=== PATIENT | female | born 1965 | race Caucasian/White ===

== ENCOUNTER 2019-08-17 15:02 | Emergency (ER) | payer OTHER ==
[2019-08-17] MEDS ORDERED: TETANUS & DIPHTHERIA TOX,ADULT 0.5 ML VIAL ONE (15:16)
[2019-08-17] MEDS ORDERED: LIDOCAINE 1% MPF 5 ML VIAL ONE (15:16)
--- NOTE | 2019-08-17 16:05 | RAD REPORT ---
EXAM DESCRIPTION: RAD - Hand Right 3 View - 08/17/2019 3:49 pm CLINICAL HISTORY: Right hand pain, laceration not further localized COMPARISON: None. FINDINGS: No fracture is identified. There is no dislocation or periosteal reaction noted. No forei gn body or other soft tissue abnormality. IMPRESSION: Negative right hand examination for acute or significant bone, joint or soft tissue find ing.
--- NOTE | 2019-08-17 16:13 | ER ---
Nurse's Notes [facility] Name: Nathalie Jordan Age: 53 yrs Sex: Female : 1965 Arrival Date: 08/17/2019 Time: 15:03 Bed 27 Private MD: Amadou Benton B Diagnosis: Laceration without foreign body of right ring finger without damage to nail Presentation: 08/17 15:09 Presenting complaint: Patient states: right 4th digit laceration with a potato slicer sv today. Transition of care: patient was not received from another setting of care. Complicating Factors: There are no complicating factors for this patient. Onset of symptoms was August 17, 2019. Risk Assessment: Do you want to hurt yourself or someone else? Patient reports no desire to harm self or others. Initial Sepsis Screen: Does the patient meet any 2 criteria? No. Patient's initial sepsis screen is negative. Does the patient have a suspected source of infection? No. Patient's initial sepsis screen is negative. Care prior to arrival: None. 15:09 Method Of Arrival: Ambulatory sv 15:09 Acuity: ALISON 3 sv Historical: - Allergies: 15:10 No Known Allergies; sv - PMHx: 15:10 None; sv - PSHx: 15:10 Hysterectomy; Carotid surgery; R ankle; Gastric Bypass; sv - Immunization history:: Flu vaccine is not up to date. - Social history:: Smoking status: Patient/guardian denies using tobacco. - Ebola Screening: : No symptoms or risks identified at this time. Screenin:27 Abuse screen: Denies threats or abuse. Denies injuries from another. Nutritional rv screening: No deficits noted. Tuberculosis screening: No symptoms or risk factors identified. Fall Risk None identified. Assessment: 15:00 General: Appears in no apparent distress. comfortable, Behavior is calm, cooperative. rv 15:00 Pain: Complains of pain in right hand. Neuro: Level of Consciousness is awake, alert, rv obeys commands, Oriented to person, place, time, situation. Cardiovascular: Patient's skin is warm and dry. Respiratory: Airway is patent. Derm: Skin is intact. Musculoskeletal: Injury Description: Laceration sustained to palmar aspect of distal phalanx of right ring finger is clean. Vital Signs: 15:10 BP 157 / 96; Pulse 76; Resp 20; Temp 97.3; Pulse Ox 99% ; Weight 108.86 kg; Height 5 sv ft. 7 in. (170.18 cm); 16:28 BP 138 / 88; Pulse 71; Resp 17; Pulse Ox 99% on R/A; rv 15:10 Body Mass Index 37.59 (108.86 kg, 170.18 cm) sv ED Course: 15:00 Patient has correct armband on for positive identification. Pulse ox on. NIBP on. rv 15:03 Patient arrived in ED. as 15:04 Amadou Benton MD is Private Physician. as 15:06 Antwan Morfin NP is PHCP. pm1 15:06 Ashu Carr MD is Attending Physician. pm1 15:10 Triage completed. sv 15:11 Arm band placed on. sv 15:24 Ghassan Licona RN is Primary Nurse. rv 15:45 Wound care: to laceration located on palmar aspect of distal phalanx of right ring rv finger Patient tolerated. 15:50 Hand Right 3 View XRAY In Process Unspecified. EDMS 16:27 No provider procedures requiring assistance completed. Patient did not have IV access rv during this emergency room visit. 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 Exp: rv 01/29/2021. Lot #: [id number]. } Route: IM; Site: right deltoid; 16:25 Follow up: Response: No adverse reaction rv 16:24 Drug: Lidocaine (1 %) 5 ml Volume: 5 ml; Route: Infiltration; rv 16:25 Follow up: Response: No adverse reaction rv Outcome: 16:11 Discharge ordered by MD. pm1 16:27 Discharged to home ambulatory, with family. rv 16:27 Condition: good 16:27 Discharge instructions given to patient, Instructed on discharge instructions, follow up and referral plans. medication usage, wound care, Demonstrated understanding of instructions, follow-up care, medications, Prescriptions given X 1. 16:29 Patient left the ED. rv Signatures: Dispatcher [employer] EDMS Alayna Oro RN RN sv Martinez, Amelia as Antwan Morfin NP CLIENT CONSULTANT pm1 Ghassan Licona RN RN rv
--- NOTE | 2019-08-17 16:14 | EDPHYS ---
Physician Documentation [facility] Name: Nathalie Jordan Age: 53 yrs Sex: Female : 1965 Arrival Date: 08/17/2019 Time: 15:03 Bed 27 Private MD: Amadou Benton B ED Physician Ashu Carr HPI: 08/17 15:23 This 53 yrs old Female presents to ER via Ambulatory with complaints of pm1 Laceration - Finger. 15:23 The patient or guardian reports a laceration. The complaints affect the palmar aspect pm1 of distal phalanx of right ring finger. Context: The problem was sustained at home, resulted from cutting potatoes. Onset: The symptoms/episode began/occurred just prior to arrival. Modifying factors: The symptoms are alleviated by pressure to area. Associated signs and symptoms: Pertinent negatives: cyanosis distally, decreased sensation distally, numbness distally, tingling distally. The patient has not recently seen a physician, the patient's primary care provider is Dr. Benton. Historical: - Allergies: 15:10 No Known Allergies; sv - PMHx: 15:10 None; sv - PSHx: 15:10 Hysterectomy; Carotid surgery; R ankle; Gastric Bypass; sv - Immunization history:: Flu vaccine is not up to date. - Social history:: Smoking status: Patient/guardian denies using tobacco. - Ebola Screening: : No symptoms or risks identified at this time. ROS: 15:23 Constitutional: Negative for fever, chills, and weight loss, Cardiovascular: Negative pm1 for chest pain, palpitations, and edema, Respiratory: Negative for shortness of breath, cough, wheezing, and pleuritic chest pain, Back: Negative for injury and pain. 15:23 Neuro: Negative for headache, weakness, numbness, tingling, and seizure. 15:23 MS/extremity: Positive for laceration, of the palmar aspect of distal phalanx of right ring finger, Negative for decreased range of motion, deformity. 15:23 Skin: Positive for laceration(s), of the palmar aspect of distal phalanx of right ring finger. Exam: 15:23 Constitutional: This is a well developed, well nourished patient who is awake, alert, pm1 and in no acute distress. Head/Face: Normocephalic, atraumatic. Neck: Trachea midline, no thyromegaly or masses palpated, and no cervical lymphadenopathy. Supple, full range of motion without nuchal rigidity, or vertebral point tenderness. No Meningismus. Chest/axilla: Normal chest wall appearance and motion. Nontender with no deformity. No lesions are appreciated. Cardiovascular: Regular rate and rhythm with a normal S1 and S2. No gallops, murmurs, or rubs. No pulse deficits. Respiratory: Lungs have equal breath sounds bilaterally, clear to auscultation and percussion. No rales, rhonchi or wheezes noted. No increased work of breathing, no retractions or nasal flaring. Back: No spinal tenderness. No costovertebral tenderness. Full range of motion. 15:23 Skin: Appearance: normal except for affected area, injury, laceration(s), the wound is approximately 1.5 cm(s), of the palmar aspect of distal phalanx of right ring finger. 15:23 Neuro: Orientation: is normal, Motor: is normal, moves all fours, Sensation: is normal, no obvious gross deficits, Gait: is steady, at a normal pace, without difficulty. Vital Signs: 15:10 BP 157 / 96; Pulse 76; Resp 20; Temp 97.3; Pulse Ox 99% ; Weight 108.86 kg; Height 5 sv ft. 7 in. (170.18 cm); 16:28 BP 138 / 88; Pulse 71; Resp 17; Pulse Ox 99% on R/A; rv 15:10 Body Mass Index 37.59 (108.86 kg, 170.18 cm) sv Laceration: 16:12 Wound Repair of 1.5cm ( 0.6in ) subcutaneous laceration to palmar aspect of distal pm1 phalanx of right ring finger. Linear shaped.. Distal neuro/vascular/tendon intact. Anesthesia: Digital block administered with 2 mls of 1% lidocaine. Wound prep: Extensive cleansing with hibiclenz by nurse, Wound irrigation with saline by nurse, Wound explored extensively, Copious irrigation. Skin closed with 5 5-0 Prolene using simple sutures and sterile technique. Dressed with 4x4's. Patient tolerated well. MDM: 15:19 Patient medically screened. pm1 16:09 Data reviewed: vital signs. Data interpreted: Pulse oximetry: on room air is 99 %. pm1 Interpretation: normal. Counseling: I had a detailed discussion with the patient and/or guardian regarding: the historical points, exam findings, and any diagnostic results supporting the discharge/admit diagnosis, radiology results, the need for outpatient follow up, PCP/ER/Clinic for suture removal in 10-14 days, to return to the emergency department if symptoms worsen or persist or if there are any questions or concerns that arise at home. 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 Exp: rv 01/29/2021. Lot #: [id number]. } Route: IM; Site: right deltoid; 16:25 Follow up: Response: No adverse reaction rv 16:24 Drug: Lidocaine (1 %) 5 ml Volume: 5 ml; Route: Infiltration; rv 16:25 Follow up: Response: No adverse reaction rv Disposition: 16:43 Co-signature as Attending Physician, Ashu Carr MD I agree with the assessment and kdr plan of care. Disposition: 08/17/19 16:11 Discharged to Home. Impression: Laceration without foreign body of right ring finger without damage to nail. - Condition is Stable. - Discharge Instructions: Laceration Care, Adult. - Prescriptions for Keflex 500 mg Oral Capsule - take 1 capsule by ORAL route every 12 hours for 10 days; 20 capsule. - Medication Reconciliation Form, Thank You Letter, Antibiotic Education, Prescription Opioid Use form. - Follow up: Emergency Department; When: As needed; Reason: Worsening of condition. Follow up: Private Physician; When: 10 - 14 days; Reason: Recheck today's complaints, Continuance of care, Re-evaluation by your physician. - Problem is new. - Symptoms have improved. Signatures: Dispatcher [employer] Alayna Padilla RN RN sv Ashu Carr MD MD kdr Antwan Morfin, CASTINGS TRIMMER CASTINGS TRIMMER pm1 Ghassan Licona, RN RN rv Corrections: (The following items were deleted from the chart) 16:29 16:11 08/17/2019 16:11 Discharged to Home. Impression: Laceration without foreign body rv of right ring finger without damage to nail. Condition is Stable. Forms are Medication Reconciliation Form, Thank You Letter, Antibiotic Education, Prescription Opioid Use. Follow up: Emergency Department; When: As needed; Reason: Worsening of condition. Follow up: Private Physician; When: 10 - 14 days; Reason: Recheck today's complaints, Continuance of care, Re-evaluation by your physician. Problem is new. Symptoms have improved. pm1
[2019-08-17 16:36] VITALS: TEMP 97.3; O2SAT 99
[2019-08-17 16:38] VITALS: BP 138/88
== END 2019-08-17 16:29 | disposition home or self-care (01) ==
LOC: ER 15:02
PROC: 0JQJ0ZZ Repair Right Hand Subcutaneous Tissue and Fascia, Open Approach (ICD-10-PCS; principal; 2019-08-17)
DX: S61.214A Laceration without foreign body of right ring finger without damage to nail, initial encounter (principal); W45.8XXA Other foreign body or object entering through skin, initial encounter; Y93.G3 Activity, cooking and baking; Y92.009 Unspecified place in unspecified non-institutional (private) residence as the place of occurrence of the external cause; Z23 Encounter for immunization
CPT/HCPCS: 90471; 90714; 99284

== ENCOUNTER 2024-05-08 19:21 | Emergency (ER) | payer OTHER ==
--- OUTSIDE RECORDS SUMMARY | 2024-05-08 19:24 | XMS REPORT | Clinical Summary ---
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 0 12/06/2017 Active traZODone (DESYREL) 50 mg tablet Take 1 tablet by mouth as needed. 0 12/06/2017 Active QUEtiapine (SEROquel) 300 mg tablet Take 300 mg by mouth at bedtime. 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 Fracture of bone 20+ years ankle-Right Depressive disorder 2+ years Bipolar Anxiety 15+ years [place] Suicide attempt 2+ years Social History Tobacco Use Types Packs/Day Years Used Date Smoking Tobacco: Former Cigarettes Q uit: 08/26/1986 Smokeless Tobacco: Never Alcohol Use Standard Drinks/Week Comments No 0 (1 standard drink = 0.6 oz pur e alcohol) Sex and Gender Information Value Date Recorded Sex Assigned at Not on file Gender Identity Not on file Sexual Orientation Not on file Obstetrics History Para Term AB IAB SAB Ectopic Multiple Livin g Live Births 3 2 1 2 Date Outcome GA Total Labor Labor/2nd/3rd Weight Sex Type Anes PTL Fannie A1 A5 Name Clin Para Para AB Plan of Treatment Health Maintenance Due Date Last Done Comments COVID-19 Vaccine (2022-2 4 season) 2024 Influenza Vaccine (#1) 2024 Pneumococcal Vaccine: Pediat rics (0 to 5 Years) and At-Risk Patients (6 to 64 Years) Aged Out No longer eligi ble based on patient's age to complete this topic Care Teams Auto Body 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 PCP - General Gynecologic Medical Oncology 12/30/17 Leon Arshad MD [address] [place], [place] [id number] [email or web address] PCP - External Referring 12/30/17 Amadou Benton [address] [place], [place] [id number] PCP - External Primary Care Provider 01/01/18
[2024-05-08] MEDS ORDERED: CIPROFLOXACIN HCL 500 MG TAB ONE (20:26)
[2024-05-08] MEDS ORDERED: PHENAZOPYRIDINE 100MG TAB PO ONE (20:26)
--- NOTE | 2024-05-08 20:26 | EDPHYS ---
Physician Documentation [facility] Name: Nathalie Jordan Age: 58 yrs Sex: Female : 1965 Arrival Date: 05/08/2024 Time: 19:21 Bed 16 Private MD: ED Physician Vinay Bledsoe HPI: 05/08 20:22 This 58 yrs old Female presents to ER via Ambulatory with complaints of Low wayne Back Pain. Historical: - Allergies: 19:48 No Known Allergies; dd2 - PMHx: 19:48 None; dd2 - PSHx: 19:48 hysterectomy; gastric sleeve; dd2 - Immunization history:: Adult Immunizations unknown. - Infectious Disease History:: Denies. - Social history:: Smoking status: Patient denies any tobacco usage or history of. ROS: 20:22 Constitutional: Negative for fever, chills, and weight loss, Eyes: Negative for injury, wayne pain, redness, and discharge, ENT: Negative for injury, pain, and discharge, Neck: Negative for injury, pain, and swelling, Cardiovascular: Negative for chest pain, palpitations, and edema, Respiratory: Negative for shortness of breath, cough, wheezing, and pleuritic chest pain, Abdomen/GI: Negative for abdominal pain, nausea, vomiting, diarrhea, and constipation, Back: Negative for injury and pain, MS/Extremity: Negative for injury and deformity, Skin: Negative for injury, rash, and discoloration, Neuro: Negative for headache, weakness, numbness, tingling, and seizure, Psych: Negative for depression, anxiety, suicide ideation, homicidal ideation, and hallucinations, Allergy/Immunology: Negative for hives, rash, and allergies, Endocrine: Negative for neck swelling, polydipsia, polyuria, polyphagia, and marked weight changes, Hematologic/Lymphatic: Negative for swollen nodes, abnormal bleeding, and unusual bruising, 20:22 : Positive for urinary symptoms, urinary frequency, small amounts, burning with urination, difficulty urinating, Exam: 20:22 Constitutional: This is a well developed, well nourished patient who is awake, alert, wayne and in no acute distress. Head/Face: Normocephalic, atraumatic. Eyes: Pupils equal round and reactive to light, extra-ocular motions intact. Lids and lashes normal. Conjunctiva and sclera are non-icteric and not injected. Cornea within normal limits. Periorbital areas with no swelling, redness, or edema. ENT: Nares patent. No nasal discharge, no septal abnormalities noted. Tympanic membranes are normal and external auditory canals are clear. Oropharynx with no redness, swelling, or masses, exudates, or evidence of obstruction, uvula midline. Mucous membranes moist. Neck: Trachea midline, no thyromegaly or masses palpated, and no cervical lymphadenopathy. Supple, full range of motion without nuchal rigidity, or vertebral point tenderness. No Meningismus. Chest/axilla: Normal chest wall appearance and motion. Nontender with no deformity. No lesions are appreciated. Cardiovascular: Regular rate and rhythm with a normal S1 and S2. No gallops, murmurs, or rubs. Normal PMI, no JVD. No pulse deficits. Respiratory: Lungs have equal breath sounds bilaterally, clear to auscultation and percussion. No rales, rhonchi or wheezes noted. No increased work of breathing, no retractions or nasal flaring. Abdomen/GI: Soft, non-tender, with normal bowel sounds. No distension or tympany. No guarding or rebound. No evidence of tenderness throughout. Back: No spinal tenderness. No costovertebral tenderness. Full range of motion. Female : Normal external genitalia. Skin: Warm, dry with normal turgor. Normal color with no rashes, no lesions, and no evidence of cellulitis. MS/ Extremity: Pulses equal, no cyanosis. Neurovascular intact. Full, normal range of motion. Neuro: Awake and alert, GCS 15, oriented to person, place, time, and situation. Cranial nerves II-XII grossly intact. Motor strength 5/5 in all extremities. Sensory grossly intact. Cerebellar exam normal. Normal gait. Psych: Awake, alert, with orientation to person, place and time. Behavior, mood, and affect are within normal limits. Vital Signs: 19:43 BP 124 / 92; Pulse 77; Resp 16; Temp 98.3(O); Pulse Ox 100% ; Weight 84.82 kg; dd2 20:00 BP 156 / 99; Pulse 99; Resp 18; Temp 98.2; Pulse Ox 100% ; Pain 5/10; rg5 21:01 BP 150 / 87; Pulse 65; Resp 17; Pulse Ox 99% on R/A; rg5 20:00 Pain Scale: Adult rg5 MDM: 19:29 Patient medically screened. [facility] 20:25 Differential diagnosis: nonspecific abdominal pain, urinary tract infection. Data [facility] reviewed: vital signs, nurses notes, lab test result(s), urinalysis. Consideration of Admission/Observation Escalation of care including admission/observation considered. I considered the following discharge prescriptions or medication management in the emergency department Medications were administered in the Emergency Department. See MAR. Test considered but Not performed: Labs: no cbc, no comp met. Historians other than the Patient: Spouse/Significant Other: spouse well informed. Care significantly affected by the following chronic conditions: none. Counseling: I had a detailed discussion with the patient and/or guardian regarding the historical points, exam findings, and any diagnostic results supporting the discharge/admit diagnosis, lab results. 05/08 20:05 Order name: Urinalysis w/ reflexes [facility] 05/08 20:05 Order name: PREGU [facility] 05/08 20:21 Order name: Urine Culture [facility] Administered Medications: 20:34 Drug: Ciprofloxacin PO 500 mg PO once Route: PO; rg5 20:43 Follow up: Response: No adverse reaction rg5 20:34 Drug: Phenazopyridine PO 200 mg PO once Route: PO; rg5 20:43 Follow up: Response: No adverse reaction rg5 20:45 Drug: Trimethoprim-Sulfamethoxazole PO (160 mg-800 mg (DS) 1 tablet PO once Route: PO; rg5 21:00 Follow up: Response: No adverse reaction rg5 Disposition Summary: 05/08/24 20:26 Discharge Ordered Notes: Location: Home [facility] Problem: new [facility] Symptoms: have improved wayne Condition: Stable wayne Diagnosis - Dysuria wayne - UTI/ Urinary tract infection, site not specified wayne Followup: wayne - With: Private Physician - When: 2 - 3 days - Reason: Recheck today's complaints, Continuance of care, Re-evaluation by your physician Discharge Instructions: - Discharge Summary Sheet wayne - Dysuria wayne - Urinary Tract Infection, Adult wayne - Urinary Tract Infection, Adult, [id number] [facility] Forms: - Medication Reconciliation Form wayne - Antibiotic Education wayne - Prescription Opioid Use wayne - Patient Portal Instructions [facility] - Leadership Thank You Letter [facility] Prescriptions: - Cipro 250 mg Oral tablet - take 1 tablet ORAL route every 12 hours; 14 tablet; Refills: 0, Product [facility] Selection Permitted - Pyridium 200 mg Oral Tablet - take 1 tablet ORAL route every 8 hours for 3 days; 9 tablet; Refills: 0, [facility] Product Selection Permitted - Bactrim DS 800-160 mg Oral Tablet - take 1 tablet ORAL route every 12 hours for 3 days; 6 tablet; Refills: 0, [facility] Product Selection Permitted Signatures: Dispatcher [employer] Vinay Zabala MD MD cha Gallardo, Rommel RN RN rg5 JOSE MARTIN LI RN RN dd2
--- NOTE | 2024-05-08 20:26 | ER ---
Nurse's Notes [facility] Name: Nathalie Jordan Age: 58 yrs Sex: Female : 1965 Arrival Date: 05/08/2024 Time: 19:21 Bed 16 Private MD: Diagnosis: Dysuria;UTI/ Urinary tract infection, site not specified Presentation: 05/08 19:43 Chief complaint: Patient states: Pt c/o laow back pain and difficulty urinating, dd2 urgency and burning. Pt states 2 weeks ago in [place] dx with UTI and given antibx. Has worsened. Coronavirus screen: At this time, the client does not indicate any symptoms associated with coronavirus-19. Ebola Screen: No symptoms or risks identified at this time. Initial Sepsis Screen: Does the patient meet any 2 criteria? No. Patient's initial sepsis screen is negative. Does the patient have a suspected source of infection? No. Patient's initial sepsis screen is negative. Risk Assessment: Do you want to hurt yourself or someone else? Patient reports no desire to harm self or others. Onset of symptoms is unknown. 19:43 Method Of Arrival: Ambulatory dd2 19:43 Acuity: ALISON 3 dd2 Triage Assessment: 19:48 General: Appears uncomfortable, Behavior is calm, cooperative, appropriate for age. dd2 Pain: Complains of pain in left low back and right low back Pain currently is 7 out of 10 on a pain scale. : Reports burning with urination, urgency, urinary frequency. Historical: - Allergies: 19:48 No Known Allergies; dd2 - PMHx: 19:48 None; dd2 - PSHx: 19:48 hysterectomy; gastric sleeve; dd2 - Immunization history:: Adult Immunizations unknown. - Infectious Disease History:: Denies. - Social history:: Smoking status: Patient denies any tobacco usage or history of. Screenin:00 [facility] ED Fall Risk Assessment (Adult) History of falling in the last 3 months, rg5 including since admission Confusion or Disorientation No (0 pts) Intoxicated or Sedated No (0 pts) Impaired Gait No (0 pts) Mobility Assist Device Used No (0 pt) Altered Elimination No (0 pt) Score/Fall Risk Level 0 - 2 = Low Risk Oriented to surroundings, Maintained a safe environment, Hourly rounding (assess needs \T\ fall precautionary measures) done. 20:00 Abuse screen: Denies threats or abuse. Nutritional screening: No deficits noted. rg5 Tuberculosis screening: No symptoms or risk factors identified. Assessment: 20:00 General: Appears in no apparent distress. Behavior is calm. rg5 20:00 Pain: Complains of pain in abdomen Pain currently is 5 out of 10 on a pain scale. rg5 Quality of pain is described as crampy. Neuro: Level of Consciousness is awake, alert, obeys commands. Cardiovascular: Denies chest pain, shortness of breath, Capillary refill < 3 seconds Patient's skin is warm and dry. Respiratory: Airway is patent Trachea midline Respiratory effort is even, unlabored. GI: Abdomen is round non-distended. : Reports burning with urination, pain since yesterday. EENT: No deficits noted. Derm: Skin is intact, Skin is dry, Skin is pink, warm \T\ dry. Skin temperature is warm. Musculoskeletal: Range of motion: intact in all extremities. Vital Signs: 19:43 BP 124 / 92; Pulse 77; Resp 16; Temp 98.3(O); Pulse Ox 100% ; Weight 84.82 kg; dd2 20:00 BP 156 / 99; Pulse 99; Resp 18; Temp 98.2; Pulse Ox 100% ; Pain 5/10; rg5 21:01 BP 150 / 87; Pulse 65; Resp 17; Pulse Ox 99% on R/A; rg5 20:00 Pain Scale: Adult rg5 ED Course: 19:24 Patient arrived in ED. ra3 19:29 Vinay Bledsoe MD is Attending Physician. wayne 19:48 Triage completed. dd2 19:48 Arm band placed on left wrist. Patient placed in an exam room, on a stretcher, on pulse dd2 oximetry, Patient notified of wait time. 19:57 Edgar Mckinney, SABIHA is Primary Nurse. rg5 20:00 Patient has correct armband on for positive identification. Call light in reach. Side rg5 rails up X 1. Adult w/ patient. Provided Education on:. 20:00 No provider procedures requiring assistance completed. Patient did not have IV access rg5 during this emergency room visit. 20:42 Awaiting lab results. rg5 21:01 Resting quietly. rg5 21:01 Door closed. Noise minimized. Warm blanket given. rg5 Administered Medications: 20:34 Drug: Ciprofloxacin PO 500 mg PO once Route: PO; rg5 20:43 Follow up: Response: No adverse reaction rg5 20:34 Drug: Phenazopyridine PO 200 mg PO once Route: PO; rg5 20:43 Follow up: Response: No adverse reaction rg5 20:45 Drug: Trimethoprim-Sulfamethoxazole PO (160 mg-800 mg (DS) 1 tablet PO once Route: PO; rg5 21:00 Follow up: Response: No adverse reaction rg5 Medication: 20:40 VIS not applicable for this client. rg5 Outcome: 20:26 Discharge ordered by . wayne 21:10 Patient left the ED. rg5 Signatures: Vinay Bledsoe MD MD cha Alva, Ruby ra3 Edgar Mckinney, RN RN rg5 JOSE MARTIN LI RN RN dd2
[2024-05-08 20:53] LABS: Specific Gravity > 1.030 (1.005-1.030); Sqamous Epithelial <5 /HPF (None Seen); Urine Bacteria None Seen /HPF (<20); Urine Bilirubin NEGATIVE (Negative); Urine Blood 1+ (Negative); Urine Clarity Turbid (Clear); Urine Color Light-Yellow (Yellow); Urine Crystals Unidentified Few /HPF (None Seen); Urine Culture Reflex Order REFLEXED; Urine Glucose NEGATIVE (Negative); Urine Ketones NEGATIVE (Negative); Urine Microscopic Reflex YN ORDER UMIC; Urine Mucus Slight /HPF (None Seen); Urine Nitrite NEGATIVE (Negative); Urine Protein TRACE (Negative); Urine Urobilinogen Normal (Normal); Urine WBC >50 /HPF (<5); Urine WBC Clump Rare /HPF (None Seen)
[2024-05-08 20:54] LABS: Specific Gravity > 1.030 (1.005-1.030)
[2024-05-08] MEDS ORDERED: SMZ./TMP. 800/160 MG TABLET ONE (20:56)
[2024-05-08 21:53] VITALS: TEMP 98.2
[2024-05-08 21:54] VITALS: BP 150/87; O2SAT 99
== END 2024-05-08 21:10 | disposition home or self-care (01) ==
LOC: ER 19:21
DX: N39.0 Urinary tract infection, site not specified (principal); M54.50 Low back pain, unspecified
CPT/HCPCS: 81001; 81025; 87086; 87088; 99283

== ENCOUNTER 2024-06-07 15:48 | Emergency (ER) | payer OTHER ==
--- OUTSIDE RECORDS SUMMARY | 2024-06-07 15:51 | XMS REPORT | Clinical Summary ---
Author Name Unknown Organization [facility] Address [address] [place] [address] Care Team Providers Care Drafter Civil Name Role Phone Jessy Patel MD Primary Care Provider + [phone] Leon Arshad MD Unavailable [phone] Amadou Benton Unavailable Allergies Active Allergy Reactions [...] Due Date Last Done Comments COVID-19 Vaccine (2023-2 5 season) 2024 Influenza Vaccine (#1) 2024 Pneumococcal Vaccine: Pediat rics (0 to 5 Years) and At-Risk Patients (6 to 64 Years) Aged Out No longer eligi ble based on patient's age to complete this topic Care Teams Drafter Civil Relationship Specialty Start Date End Date Jessy Patel MD [email or web address] PCP - General Gynecologic Medical Oncology 12/30/17 Leon Arshad MD [address] [place], [place] [id number] [email or web address] PCP - External Referring 12/30/17 Amadou Benton [address], [place], [place] [id number] PCP - External Primary Care Provider 01/01/18
[2024-06-07] MEDS ORDERED: METOCLOPRAMIDE 10 MG/2mL INJ ONE (16:20)
[2024-06-07] MEDS ORDERED: DIPHENHYDRAMINE 50 MG/ML VIAL ONE (16:20)
[2024-06-07] MEDS ORDERED: NA CHLORIDE 0.9% 1,000 ML ONE (16:20)
[2024-06-07] MEDS ORDERED: dexAMETHasone 10 MG/ML VIAL ONE (16:20)
--- NOTE | 2024-06-07 17:17 | RAD REPORT ---
EXAM: CT brain without contrast HISTORY: Headache COMPARISON: None TECHNIQUE: Multiple contiguous axial images were obtained and a CT of the brain without contrast.. Sagittal and coronal reconstruction performed. Automated exposure control, adjustment of the mA and/or kV according to patient size, and/or iterative reconstruction. Unless otherwise specified, incidental f indings do not require dedicated imaging follow-u FINDINGS: An intracranial bleed is not seen Ventricles are normal caliber No extra-axial fluid collection noted No significant hypodensity within the brain No fluid within the visualized sinuses or mastoids noted. IMPRESSION: No acute intracranial abnormality noted. If the patient's symptoms persist MRI of the brain would be recommended.
[2024-06-07] MEDS ORDERED: KETOROLAC 30 MG/ML INJ ONE (17:31)
--- NOTE | 2024-06-07 17:45 | ER ---
Nurse's Notes [facility] Name: Nathalie Jordan Age: 58 yrs Sex: Female : 1965 Arrival Date: 06/07/2024 Time: 15:48 Bed 20 Private MD: Diagnosis: Migraine without aura, not intractable Presentation: 06/07 15:55 Chief complaint: Patient states: Severe LUCERO with nausea started today. Coronavirus ll1 screen: Client denies travel out of the [place] in the last 14 days. At this time, the client does not indicate any symptoms associated with coronavirus-19. Ebola Screen: Patient denies travel to an Ebola-affected area in the 21 days before illness onset. Initial Sepsis Screen: Does the patient meet any 2 criteria? No. Patient's initial sepsis screen is negative. Does the patient have a suspected source of infection? No. Patient's initial sepsis screen is negative. Risk Assessment: Do you want to hurt yourself or someone else? Patient reports no desire to harm self or others. Onset of symptoms was June 07, 2024. 15:55 Method Of Arrival: Wheelchair ll1 15:55 Acuity: ALISON 3 ll1 Triage Assessment: 15:59 General: Appears distressed, uncomfortable, Behavior is calm, cooperative, appropriate ll1 for age. Pain: Complains of pain in head Pain currently is 10 out of 10 on a pain scale. Quality of pain is described as aching, throbbing, Pain began. Neuro: Reports headache. GI: Reports nausea. 18:09 Headache History: The patient has had previous headaches and this one is similar to me1 previous episodes. Pain: Also complains of nausea, photophobia. Historical: - Allergies: 15:51 No Known Drug Allergies; ll1 - PMHx: 15:54 None; ll1 - PSHx: 15:51 gastric sleeve; hysterectomy; ll1 15:54 ankle/foot surgery; ll1 - Immunization history:: Adult Immunizations up to date. - Infectious Disease History:: Denies. - Social history:: Smoking status: Patient denies any tobacco usage or history of. Screenin:00 [facility] ED Fall Risk Assessment (Adult) History of falling in the last 3 months, me1 including since admission No falls in past 3 months (0 pts) Confusion or Disorientation No (0 pts) Intoxicated or Sedated No (0 pts) Impaired Gait No (0 pts) Mobility Assist Device Used No (0 pt) Altered Elimination No (0 pt) Score/Fall Risk Level 0 - 2 = Low Risk Maintained a safe environment, Provided non-skid footwear, Hourly rounding (assess needs \T\ fall precautionary measures) done. Abuse screen: Denies threats or abuse. Nutritional screening: No deficits noted. Tuberculosis screening: No symptoms or risk factors identified. Assessment: 16:00 General: Appears uncomfortable, ill, well groomed, well developed, well nourished, me1 Behavior is calm, cooperative, appropriate for age, Reports severe headache with nausea since this morning. Pain: Complains of pain in head Pain does not radiate. Pain currently is 10 out of 10 on a pain scale. Quality of pain is described as aching, Pain began gradually, Is continuous. Neuro: Level of Consciousness is awake, alert, obeys commands, Oriented to person, place, time, situation, Appropriate for age. Cardiovascular: Patient's skin is warm and dry. Respiratory: Airway is patent Respiratory effort is even, unlabored, Respiratory pattern is regular, symmetrical. GI: Reports nausea. : No signs and/or symptoms were reported regarding the genitourinary system. EENT: No signs and/or symptoms were reported regarding the EENT system. Derm: Skin is intact, is healthy with good turgor, Skin is pink, warm \T\ dry. Musculoskeletal: No signs and/or symptoms reported regarding the musculoskeletal system. Vital Signs: 15:55 BP 150 / 99; Pulse 67; Resp 17; Temp 97.5; Pulse Ox 97% on R/A; Weight 82.1 kg; Height ll1 5 ft. 7 in. ; Pain 10/10; 16:30 BP 149 / 92; Pulse 59; Resp 18; Pulse Ox 99% ; me1 17:00 BP 152 / 87; Pulse 67; Resp 18; Pulse Ox 97% ; me1 17:10 Pain 5/10; me1 17:11 Pain 5/10; me1 17:11 Pain 5/10; me1 18:05 BP 157 / 75; Pulse 61; Resp 18; Temp 98.4; Pulse Ox 100% on R/A; me1 15:55 Body Mass Index 28.35 (82.10 kg, 170.18 cm) ll1 15:55 Pain Scale: Adult ll1 17:10 Pain Scale: Adult me1 17:11 Pain Scale: Adult me1 17:11 Pain Scale: Adult me1 Frieda Coma Score: 16:57 Eye Response: spontaneous(4). Motor Response: obeys commands(6). Verbal Response: kb oriented(5). Total: 15. ED Course: 15:50 Patient arrived in ED. mg5 15:52 Arm band placed on. ll1 15:53 Denise Babcock FNP-C is PHCP. kb 15:53 Daniel Bergeron MD is Attending Physician. kb 15:56 Triage completed. ll1 15:59 Patient placed in an exam room, on a stretcher. ll1 16:00 Patient has correct armband on for positive identification. Bed in low position. Call me1 light in reach. Side rails up X2. Provided Education on: POC. Verbalized understanding. . Client placed on continuous cardiac and pulse oximetry monitoring. NIBP monitoring applied. Pulse ox on. NIBP on. 16:00 No provider procedures requiring assistance completed. me1 16:12 Monique Felix, RN is Primary Nurse. me1 16:26 Inserted saline lock: 22 gauge in right antecubital area, using aseptic technique. me1 17:01 CT Head Brain wo Cont In Process Unspecified. EDMS 18:09 IV discontinued, intact, bleeding controlled, No redness/swelling at site. Pressure me1 dressing applied. Administered Medications: 16:27 Drug: NS 0.9% IV 1000 ml IV at 1000 ml once; to be given as a bolus over 60 minutes me1 Route: IV; Rate: 1000 ml; Site: right antecubital; 17:11 Follow up: Response: No adverse reaction; IV Status: Completed infusion; IV Intake: me1 1000ml 16:27 Drug: diphenhydrAMINE IVP 12.5 mg IVP once Route: IVP; Site: right antecubital; me1 17:11 Follow up: Pain 5/10 Adult; Response: No adverse reaction; Pain is decreased me1 16:27 Drug: Decadron - Dexamethasone IVP 10 mg IVP once Route: IVP; Site: right antecubital; me1 17:11 Follow up: Pain 5/10 Adult; Response: No adverse reaction; Pain is decreased me1 16:27 Drug: metoCLOPramide IVP 10 mg IVP once; over 1 to 2 minutes Route: IVP; Site: right me1 antecubital; 17:10 Follow up: Pain 5/10 Adult; Response: No adverse reaction; Pain is decreased me1 17:33 Drug: Ketorolac IVP 15 mg IVP once Route: IVP; Site: right antecubital; me1 18:05 Follow up: Response: No adverse reaction; Pain is decreased me1 Medication: 16:00 VIS not applicable for this client. me1 Intake: 17:11 IV: 1000ml; Total: 1000ml. me1 Outcome: 17:45 Discharge ordered by MD. chavez 18:09 Discharged to home ambulatory, with significant other, me1 18:09 Condition: stable 18:09 Discharge instructions given to patient, significant other, Instructed on discharge instructions, follow up and referral plans. Demonstrated understanding of instructions, follow-up care, 18:10 Patient left the ED. co1 Signatures: Dispatcher [employer] Denise Hannah, KERA-Jesús COTE-Brenda Solano, RN RN 1 Monique Felix RN RN me1 Yeimy Worthy mg5
--- NOTE | 2024-06-07 17:45 | EDPHYS ---
Physician Documentation [facility] Name: Nathalie Jordan Age: 58 yrs Sex: Female : 1965 Arrival Date: 06/07/2024 Time: 15:48 Bed 20 Private MD: ED Physician Daniel Bergeron HPI: 06/07 16:58 This 58 yrs old Female presents to ER via Wheelchair with complaints of Headache. kb 16:58 Pt is a 58 year old female who presents for headache with associated photophobia and kb nausea. States she had a similar headache years ago and it was a migraine. States she has migraines every once in a while. Denies chest pain, dizziness, syncope. Historical: - Allergies: 15:51 No Known Drug Allergies; ll1 - PMHx: 15:54 None; ll1 - PSHx: 15:51 gastric sleeve; hysterectomy; ll1 15:54 ankle/foot surgery; ll1 - Immunization history:: Adult Immunizations up to date. - Infectious Disease History:: Denies. - Social history:: Smoking status: Patient denies any tobacco usage or history of. ROS: 16:57 Constitutional: As per HPI kb Exam: 16:57 Constitutional: This is a well developed, well nourished patient who is awake, alert, kb and in no acute distress. Head/Face: Normocephalic, atraumatic. Eyes: Pupils equal round and reactive to light, extra-ocular motions intact. Lids and lashes normal. Conjunctiva and sclera are non-icteric and not injected. Cornea within normal limits. Periorbital areas with no swelling, redness, or edema. ENT: Moist Mucous membranes Cardiovascular: Regular rate Respiratory: Respirations even and unlabored. No increased work of breathing. Talking in full sentences Skin: Warm, dry with normal turgor. Normal color. MS/ Extremity: Pulses equal, no cyanosis. Neurovascular intact. Full, normal range of motion. Neuro: Awake and alert, GCS 15, oriented to person, place, time, and situation. Moves all extremities. Normal gait. Vital Signs: 15:55 BP 150 / 99; Pulse 67; Resp 17; Temp 97.5; Pulse Ox 97% on R/A; Weight 82.1 kg; Height ll1 5 ft. 7 in. ; Pain 10/10; 16:30 BP 149 / 92; Pulse 59; Resp 18; Pulse Ox 99% ; me1 17:00 BP 152 / 87; Pulse 67; Resp 18; Pulse Ox 97% ; me1 17:10 Pain 5/10; me1 17:11 Pain 5/10; me1 17:11 Pain 5/10; me1 18:05 BP 157 / 75; Pulse 61; Resp 18; Temp 98.4; Pulse Ox 100% on R/A; me1 15:55 Body Mass Index 28.35 (82.10 kg, 170.18 cm) ll1 15:55 Pain Scale: Adult ll1 17:10 Pain Scale: Adult me1 17:11 Pain Scale: Adult me1 17:11 Pain Scale: Adult me1 Glendora Coma Score: 16:57 Eye Response: spontaneous(4). Motor Response: obeys commands(6). Verbal Response: kb oriented(5). Total: 15. MDM: 15:53 Patient medically screened. kb 16:57 Differential diagnosis: migraine, tension headache, ICH. Data reviewed: vital signs, kb nurses notes. 17:44 Counseling: I had a detailed discussion with the patient and/or guardian regarding the kb historical points, exam findings, and any diagnostic results supporting the discharge/admit diagnosis, radiology results, the need for outpatient follow up, a neurologist, to return to the emergency department if symptoms worsen or persist or if there are any questions or concerns that arise at home. Response to treatment: the patient's symptoms have resolved after treatment. 06/07 16:11 Order name: CT Head Brain wo Cont; Complete Time: 17:18 kb 06/07 16:11 Order name: IV Start; Complete Time: 16:26 kb Administered Medications: 16:27 Drug: NS 0.9% IV 1000 ml IV at 1000 ml once; to be given as a bolus over 60 minutes me1 Route: IV; Rate: 1000 ml; Site: right antecubital; 17:11 Follow up: Response: No adverse reaction; IV Status: Completed infusion; IV Intake: me1 1000ml 16:27 Drug: diphenhydrAMINE IVP 12.5 mg IVP once Route: IVP; Site: right antecubital; me1 17:11 Follow up: Pain 5/10 Adult; Response: No adverse reaction; Pain is decreased me1 16:27 Drug: Decadron - Dexamethasone IVP 10 mg IVP once Route: IVP; Site: right antecubital; me1 17:11 Follow up: Pain 5/10 Adult; Response: No adverse reaction; Pain is decreased me1 16:27 Drug: metoCLOPramide IVP 10 mg IVP once; over 1 to 2 minutes Route: IVP; Site: right me1 antecubital; 17:10 Follow up: Pain 5/10 Adult; Response: No adverse reaction; Pain is decreased me1 17:33 Drug: Ketorolac IVP 15 mg IVP once Route: IVP; Site: right antecubital; me1 18:05 Follow up: Response: No adverse reaction; Pain is decreased me1 Disposition Summary: 06/07/24 17:45 Discharge Ordered Notes: Location: Home kb Condition: Stable kb Diagnosis - Migraine without aura, not intractable kb Followup: kb - With: Emergency Department - When: As needed - Reason: Worsening of condition Followup: kb - With: Private Physician - When: 2 - 3 days - Reason: Recheck today's complaints, Continuance of care, Re-evaluation by your physician Discharge Instructions: - Discharge Summary Sheet kb - Migraine Headache, [id number] kb Forms: - Medication Reconciliation Form kb - Antibiotic Education kb - Prescription Opioid Use kb - Patient Portal Instructions kb - Leadership Thank You Letter kb Addendum: 06/09/2024 17:59 I was immediately available for consultation during this patient's visit. I did not e c2 personally see the patient or discuss the patient with the NIKOLAI. . Signatures: Dispatcher [employer] Denise Hannah, BETTY COTE-Brenda Solano, RN RN ll1 Monique Felix, SABIHA RN me1 Daniel Bergeron MD MD ec2
[2024-06-07 21:34] VITALS: BP 157/75; TEMP 98.4; O2SAT 100
== END 2024-06-07 18:10 | disposition home or self-care (01) ==
LOC: ER 15:48
DX: G43.009 Migraine without aura, not intractable, without status migrainosus (principal)
CPT/HCPCS: 70450; J2765; J1200; J1100; J7030